=== PATIENT | female | born 1950 | race African-American/Black ===

== ENCOUNTER → 2017-04-24 | Day surgery (SDC) | payer OTHER ==
[~2017-04-24] MED LIST: CLIN150C14 PO; HYDROmorphone 2 MG/ML VIAL IV PRN; IV RINGERS,LACTATED 1000ML 1,000 ML IV SCH; LIDOCAINE 1% 1 ML SYRINGE. ID PRN; LIDOCAINE 2% PF Vial for OR 5 ML VIAL. ONE; MORPHINE SULFATE 2 MG/ML DISP.SYRIN. IV PRN; ONDANSETRON PF 4 MG/2 ML VIAL. IV PRN; PRED50TA PO; PROCHLORPERAZINE 10 MG/2 ML VIAL. IV PRN; PROPOFOL 0 ML IV ONE; PROPOFOL 40 ML IV ONE; fentaNYL PF VIAL 100 MCG/2 ML VIAL IV PRN
[2017-04-24 13:40] VITALS: BP 114/57
== END | disposition home or self-care (01) ==
LOC: ENDOS 11:34
PROVIDERS: ATTEND Internal Medicine Gastroenterology
DX: Z12.11 Encounter for screening for malignant neoplasm of colon (principal); K64.0 First degree hemorrhoids; K57.30 Diverticulosis of large intestine without perforation or abscess without bleeding; D64.9 Anemia, unspecified; Z88.0 Allergy status to penicillin; Z72.89 Other problems related to lifestyle; Z83.3 Family history of diabetes mellitus
CPT/HCPCS: 45378; J2001; J2704

== ENCOUNTER → 2017-06-06 | Outpatient (CLI) | payer OTHER ==
[2017-04-24 13:40] VITALS: BP 114/57
[~2017-06-06] MED LIST changes: -HYDROmorphone 2 MG/ML VIAL IV PRN; -IV RINGERS,LACTATED 1000ML 1,000 ML IV SCH; -LIDOCAINE 1% 1 ML SYRINGE. ID PRN; -LIDOCAINE 2% PF Vial for OR 5 ML VIAL. ONE; -MORPHINE SULFATE 2 MG/ML DISP.SYRIN. IV PRN; -ONDANSETRON PF 4 MG/2 ML VIAL. IV PRN; -PROCHLORPERAZINE 10 MG/2 ML VIAL. IV PRN; -PROPOFOL 0 ML IV ONE; -PROPOFOL 40 ML IV ONE; -fentaNYL PF VIAL 100 MCG/2 ML VIAL IV PRN
--- NOTE | 2017-06-06 12:49 | KCIC ---
Double contrast barium enema HISTORY: Incomplete colonoscopy, screening COMPARISON: None FINDINGS: Double contrast barium enema was performed. Adjunct Writing Instructor radiograph demonstrates larger likely phleboliths in the bilateral pelvis. There is nonobstructive bowel gas pattern. There was delay of contrast opacification of the right colon requiring additional contrast and gas to adequately opacify, eventual filling including opacification of the appendix.. Residual contrast obscures detail especially of the right colon. There are scattered diverticula most numerous of the sigmoid colon. There is redundancy of the sigmoid colon. No extrinsic mass or suspicious stricture was identified. Of the visualized colon, no definitive colonic mass is identified. Fluoroscopy time: 8 minutes 32 seconds; 14 images IMPRESSION: 1. There is limited evaluation especially of the right colon due to residual contrast. There was some delay of opacification of the right colon although eventual filling. There is colonic diverticulosis greatest of redundant sigmoid colon. No extrinsic suspicious stricture or mass is identified, limited evaluation for smaller mass in areas of residual contrast and given redundancy, could be better evaluated with CT colonography. Electronically signed by: Juan Cueva MD (06/06/2017 12:47 PM) [id number]
== END | disposition home or self-care (01) ==
LOC: KCIC 09:47
PROVIDERS: ATTEND Internal Medicine Gastroenterology
DX: Z12.11 Encounter for screening for malignant neoplasm of colon (principal); K57.30 Diverticulosis of large intestine without perforation or abscess without bleeding
CPT/HCPCS: 74280

== ENCOUNTER → 2019-10-08 | Outpatient (CLI) | payer OTHER ==
[2017-04-24 13:40] VITALS: BP 114/57
--- NOTE | 2019-10-08 17:01 | KCIC ---
BILATERAL SCREENING MAMMOGRAM History: Routine screening. Comparison: None. This is a baseline examination. Technique: Routine bilateral digital mammogram views were obtained. Findings: Breast Tissue Density B : There are scattered areas of fibroglandular density. There are no dominant masses, suspicious microcalcifications, or architectural distortion. IMPRESSION: No mammographic evidence of malignancy. Recommend routine screening. BI-RADS category 1: Negative. The images were reviewed with computer aided detection. Patient information is entered into the reminder system with a target due date for the next screening mammogram. Mammography is the most sensitive method for finding small breast cancers, but it does not detect them all and is not a substitute for careful clinical examination. A negative mammogram does not negate a clinically suspicious finding and should not result in delay in biopsying a clinically suspicious abnormality. "Our facility is accredited by the [employer] Mammography Program." Electronically signed by: Bucky Plunkett MD (10/08/2019 4:58 PM) [id number]
== END | disposition home or self-care (01) ==
LOC: KCIC MAMMO 11:35
PROVIDERS: ATTEND Family Medicine
DX: Z12.31 Encounter for screening mammogram for malignant neoplasm of breast (principal)
CPT/HCPCS: 77067